=== PATIENT | female | born 1955 | race Caucasian/White ===

== ENCOUNTER 2024-07-07 09:03 | Emergency (ER) | payer MEDICARE, SELFPAY ==
[2024-07-07 09:22] VITALS: BP 150/73; PULSE 72; RESP 18; TEMP 36.8; O2SAT 96; BMI 34.5
[2024-07-07 09:36] LABS: UTC Strep Screen (Rapid) Negative (Negative)
--- NOTE | 2024-07-07 09:55 | ED_ITS ---
Discharge Plan Disposition Patient Disposition: Home, Self-Care Condition: Good Prescriptions Prescriptions: New azithromycin [Zithromax] 250 mg tablet 250 mg PO UD DOSE PK Qty: 6 0RF Rx Instructions: Take two (2) tablets today, then one (1) tablet days #2 thru #5 benzonatate 100 mg capsule 100 mg PO TIDP PRN (Reason: Cough) Qty: 30 0RF methylprednisolone 4 mg Tablets,Dose Pack 4 mg PO DIRECTED 6 Days Qty: 21 0RF Rx Instructions: Take 1 pack as directed for 6 days No Action metoprolol succinate 50 MG tablet extended release 24 hr 50 mg PO DAILY lisinopril 40 MG tablet 40 mg PO DAILY Referrals Follow up/Referrals: Ricarda Webster [Primary Care Provider] - See instructions Activity Restrictions/Add. Instructions Additional Instructions/Restrictions: Drink plenty of fluids. Take tylenol or ibuprofen for pain or fever. Take the medications as directed. Follow up with your regular doctor. GO TO THE ER FOR ANY WORSENING SYMPTOMS Clinical Impressions Clinical Impression: Pharyngitis, Acute viral syndrome Instructions Patient Instructions: Sore Throat, DI for Pharyngitis/Tonsillopharyngitis -- Adult Print Language Print Language: Jordanian Discharge ED Provider: Ruddy Isabel [facility] [place] HPI General Stated complaint: sore throat, cough, blisters on throat Mode of Arrival: Ambulatory Source of Information: Patient Time Seen by Provider: 07/07/24 09:54 Description of Symptoms (Recalled from Triage Doc. by RN): sore throat, COUGHING, WORSE AT NIGHTTIME HEENT Symptoms (Recalled from RN notes): Yes Resp Symptoms (Recalled from RN notes): Yes Skin Symptoms (Recalled from RN notes): No MS Symptoms (Recalled from RN notes): No Functional Status (Recalled from RN notes): WNL Related Data Home Medications ?Medication ?Instructions ?Recorded ?Confirmed lisinopril 40 mg tablet 40 mg PO DAILY Hypertension 04/29/18 07/07/24 metoprolol succinate 50 mg 50 mg PO DAILY hypertension 04/29/18 04/29/18 tablet,extended release 24 hr Previous Rx's ?Medication ?Instructions ?Recorded azithromycin 250 mg tablet 250 mg PO UD DOSE PK #6 tabs 07/07/24 (Zithromax) benzonatate 100 mg capsule 100 mg PO TIDP PRN Cough #30 caps 07/07/24 methylprednisolone 4 mg tablets in 4 mg PO DIRECTED 6 days #21 tabs 07/07/24 a dose pack Allergies Allergy/AdvReac Type Severity Reaction Status Date / Time penicillin G Allergy Intermediate Verified 04/29/18 05:07 Worker's Comp Is this a Worker's Comp case?: No [facility] Disclaimer: The information contained in this section may have been updated after the patient was seen, as this information can be updated by other users. Social History Smoking Status: Never smoker alcohol intake: never current occupational status: retired Travel in the last 8 weeks: None caffeine: Yes ROS Obtained: Yes All systems reviewed & no additional complaints except as documented Constitutional Constitutional: Reports chills and Reports fever(s) Eyes Eyes: Denies eye discharge ENT Ears, Nose, Mouth, and Throat: Reports as per HPI Cardiovascular Cardiovascular: Denies chest pain Respiratory Respiratory: Denies chest congestion and Reports cough Gastrointestinal Gastrointestingal: Reports nausea; Denies abdominal pain, constipation, cramping, diarrhea or vomiting Musculoskeletal Musculoskeletal: Denies arthralgias Integumentary/Breasts Skin/Breast: Denies rash Neurologic Neurologic: Denies paresthesias Physical Exam General General appearance: alert and in no apparent distress Head Head exam: atraumatic, normocephalic and normal inspection Eye Eye exam: Present normal appearance, PERRL and EOMI ENT ENT exam: Present mucous membranes moist and normal external ear exam Expanded ENT Exam TM/Canal exam: Bilateral TM: erythema and bulging Nose exam: Absent sinus tenderness Mouth exam: Present normal external inspection; Absent drooling Teeth exam: Present normal inspection Throat exam: Present tonsillar erythema, tonsillomegaly and tonsillar exudate Neck Neck exam: Present normal inspection, full ROM and trachea midline; Absent tenderness, meningismus or lymphadenopathy Chest Chest inspection: Present normal inspection and symmetric chest wall rise; Absent tenderness Respiratory Respiratory exam: Present normal lung sounds bilaterally; Absent respiratory distress, wheezes or stridor Cardiovascular Cardiovascular exam: Present regular rate and normal rhythm; Absent systolic murmur or diastolic murmur Abdominal Exam Abdominal exam: Present soft and normal bowel sounds; Absent distention, tenderness, guarding, rebound or rigidity Extremities Exam Extremities exam: Present normal inspection and normal capillary refill; Absent calf tenderness Back Exam Back exam: Present normal inspection and full ROM; Absent tenderness, CVA tenderness (R) or CVA tenderness (L) Neurological Exam Neurological exam: Present alert, oriented X3 and CN II-XII intact Psychiatric Psychiatric exam: Present normal affect and normal mood Skin Skin exam: Present warm, dry, intact and normal color Medical Decision Making Medical Records Medical records reviewed: No I reviewed the patient's medical records. Screening: Per USPSTF and CDC recommendations, given the prevalence of disease in our region, it is our hospital?s policy to screen for HIV and viral Hepatitis for all patients aged 18 and over and those with ongoing risk factors. Juan Inquiry Pt receiving controlled substance: No Vital Signs: 07/07/24 09:22 Temperature 98.2 F Temperature Source Oral Pulse Rate [Left Radial] 72 Respiratory Rate 18 Blood Pressure [Left Arm] 150/73 H Blood Pressure Mean [Left Arm] 98 02 Sat by Pulse Oximetry 96 Lab Data Lab results reviewed: Yes I reviewed the patient's lab results. Lab Results 07/07/24 09:27: Strep Scn Rapid Clinic Negative Orders (Tests/Meds): ORDERS Category Date Time Status Strep Screen Confirmation Stat Micro 07/07/24 09:27 Received
[2024-07-07 10:18] VITALS: BP 150/73; PULSE 72; RESP 18; TEMP 36.8
[2024-07-07 10:36] LABS: Coronavirus 19, PCR Not Detected (NotDetected); Influenza A, PCR Not Detected (NotDetected); Influenza B, PCR Not Detected (NotDetected)
== END 2024-07-07 10:29 | disposition home or self-care (01) ==
PROVIDERS: Emergency Provider Nurse Practitioner Family; PCP Family Medicine
DX: J02.9 Acute pharyngitis, unspecified (principal); B34.9 Viral infection, unspecified
CPT/HCPCS: 87636; 87880; 99212; G0381